=== PATIENT | female | born 1980 | race Caucasian/White ===

== ENCOUNTER → 2019-03-27 | Emergency (ER) | payer OTHER ==
[~2019-03-27] VITALS: Ht 162.6 cm; Wt 117.8 kg
[~2019-03-27] MED LIST: AZIT250T PO; CETI10CA PO; PSEU-83 PO
[2019-03-27 22:42] VITALS: BP 136/66; PULSE 86; RESP 20; Ht 162.6 cm; Wt 117.8 kg
--- NOTE | 2019-03-28 03:17 | ERD ---
ER Documentation Chief Complaint Chief Complaint BILATERAL EAR PAIN AND SORE THROAT X4DAYS HPI This is a 38-year-old female who presents with complaints of a sore throat x4 days. Pain has been getting progressively worse. She also reports associated mucousy cough, nasal congestion. She states her sore throat is worse in the mornings and feels like she cannot breathe when lying down. She denies any fevers. She has been taking multiple [id number]-oiosked remedies without any relief. No neck stiffness, headache, chest pain, or shortness of breath. She is requesting strep testing. ROS All systems reviewed and are negative except as per history of present illness. Medications Home Meds Active Scripts Azithromycin* (Zithromax*) 250 Mg Tablet, 250 MG PO .ZPACK DIRECTED, #6 TAB TAKE 500 MG (2 TABS) THE FIRST DAY THEN 250 MG (1 TAB) DAYS 2-5 Prov:GIGIIGRJASBIR DORSEY-C 03/28/19 Pseudoephedrin Hcl* (Nexafed) 30 Mg Tablet, 30 MG PO Q6 PRN for CONGESTION, #20 TAB Prov:JASBIR LYLES PA-C 03/28/19 Cetirizine Hcl* (Zyrtec*) 10 Mg Capsule, 10 MG PO DAILY, #10 TAB.CHEW Prov:JASBIR LYLES-C 03/28/19 Allergies Allergies: Coded Allergies: No Known Allergy (Unverified , 03/27/19) PMhx/Soc Medical and Surgical Hx: pt denies Medical Hx, pt denies Surgical Hx Hx Alcohol Use: Yes Hx Substance Use: No Hx Tobacco Use: No Smoking Status: Never smoker Physical Exam Vitals Vital Signs Date Temp Pulse Resp B/P (MAP) Pulse Ox O2 O2 Flow FiO2 Time Delivery Rate 03/27/19 98.4 86 20 136/66 97 22:42 (89) Physical Exam Const: No acute distress Head: Atraumatic Eyes: Normal Conjunctiva. EOMI. ENT: Normal External Ears, Nose and Mouth. + Posterior OP erythema, no tonsillar edema or exudates. Postnasal drip appreciated. No sinus tenderness. Bilateral TMs and external auditory canal normal. Neck: Full range of motion. No meningismus. No lymphadenopathy. Resp: Clear to auscultation bilaterally Cardio: Regular rate and rhythm, no murmurs Skin: No petechiae or rashes Psych: Normal Mood and Affect Procedures/[facility]M LABS & DIAGNOSTIC IMAGING: Rapid strep: Negative Throat culture: Pending MEDICAL DECISION MAKIN-year-old well-appearing female presents with upper respiratory symptoms, likely viral etiology. She has no fever here. Vital signs are normal. No hypoxia. Lung sounds are reassuring. Patient requested strep testing which was negative. Patient symptoms are likely related to congestion/sinusitis. Patient does not need antibiotics at this time. I discussed this in great detail with the patient however she continually requested antibiotics. Patient has no evidence of strep pharyngitis, peritonsillar abscess, meningitis, otitis media or any other bacterial infection at this time. Patient be discharged home with antibiotics per her request. Also did prescribe for decongestants which would likely be of better benefit. Recommended primary care follow-up in 1 week. Strict return precautions were discussed. PRESCRIPTIONS: Zyrtec, pseudoephedrine, Zithromax SPECIALIST FOLLOW UP RECOMMENDED: None Patient has been advised to follow up with primary care in 1-2 days. Departure Diagnosis: Primary Impression: Sinusitis Sinusitis location: unspecified location Chronicity: unspecified Qualified Codes: J32.9 - Chronic sinusitis, unspecified Condition: Stable Patient Instructions: Uri, Viral, No Abx (Adult) Additional Instructions: Your symptoms are likely viral in nature. Strep is negative. I am prescribing you decongestions. If you have the same symptoms after 1 week, he can go ahead and take the antibiotics. JASBIR LYLES PA-C Mar 28, 2019 03:17
== END | disposition home or self-care (01) ==
LOC: FTE 22:37
DX: J32.9 Chronic sinusitis, unspecified (principal)
CPT/HCPCS: 87880; Z7502; 99283

== ENCOUNTER 2019-07-15 19:02 | Emergency (ER) | payer OTHER ==
[~2019-07-15] VITALS: Ht 162.6 cm; Wt 117.5 kg
[~2019-07-15 19:02] MED LIST changes: +AMOX500C2 PO; +HYDR-4011 PO; +IBUP-1542 PO; +IBUP800T48 PO
[2019-07-15 19:04] VITALS: BP 158/98; PULSE 90; RESP 20; Ht 162.6 cm; Wt 117.5 kg
[2019-07-15] MEDS ORDERED: KETOROLAC 60 MG INJ IM STA (19:52)
[2019-07-15] MEDS ORDERED: HYDROCODONE/APAP (5/325) TAB PO ONE (20:00)
== END 2019-07-15 21:47 | disposition home or self-care (01) ==
LOC: FTE 19:02
DX: S39.92XA Unspecified injury of lower back, initial encounter (principal); I10 Essential (primary) hypertension; X58.XXXA Exposure to other specified factors, initial encounter; Y92.9 Unspecified place or not applicable
CPT/HCPCS: 72100; 84703; 96372; J1885; Z7502; Z7610